=== PATIENT | male | born 1955 | race Caucasian/White ===

== ENCOUNTER 2017-10-10 15:20 | Inpatient (IN) | payer BC ==
[2017-10-10] MEDS ORDERED: Norepinephrine 8 MG/0.9% NS 250 ML ONE (15:35)
[2017-10-10 15:55] LABS: Bilirubin Negative (Negative); Blood, Urine Large (Negative); Clarity CLOUDY (Clear); Glucose, Urine (Dipstick) Negative (Negative); Leukocyte Negative (Negative); Nitrite Negative (Negative); Protein, Urine (Dipstick) Trace mg/dL (Neg-Trace); Specific Gravity, Urine 1.019 (1.002-1.036)
[2017-10-10 15:57] LABS: Bacteria/HPF None Seen HPF (None Seen); RBC/HPF GREATER THAN 50-TNTC HPF (0-3); Squamous Epithelial 0-3 HPF (0-3); Yeast-AUWi Flag 24.8 (0-25.0)
[2017-10-10 15:58] LABS: Pathc Cast-AUWi Flag 10.03 (0-2.49)
[2017-10-10] MEDS ORDERED: Magnesium 2 GM/NS 0.9% 100 ML 2 GM in Premix Bag 1 BAG IVPB SCH (16:00)
[2017-10-10 16:14] LABS: Crystals/HPF 1+ AMORPH URATES HPF (Negative); Other Casts/LPF 0-3 COARSE GRAN LPF (0-3 Hyaline); Transitional Epithelial 0-3 HPF (0-3)
[2017-10-10 16:14] LABS: Actual Bicarbonate (HCO3a) 18.1 mEq/L (22-28); Base Excess (BEa) -4.3 mEq/L (-2.0 to +3.0); CO2 Tension 26.2 mmHg (35.0-45.0); Carboxyhemoglobin (COHb) 0.9 gm% (0.0-3.0); Hemoglobin (Hb) 12.1 g/dL (14.0-18.0); O2 Tension (PaO2) 125.4 mmHg (> 80.0); pH, Arterial 7.46 (7.35-7.45)
[2017-10-10 16:15] LABS: Potassium - ABG Lab 4.9 mmol/L (3.70-5.30); Puncture Site LRA
[2017-10-10] MEDS ORDERED: Dextrose 50% Abboject 50 ML SYRINGE SLOW IVP PRN (16:19)
[2017-10-10] MEDS ORDERED: Dextrose 5% in Water 1,000 ML IV PRN (16:19)
[2017-10-10 16:29] LABS: Magnesium 2.6 mg/dL (1.6-2.6); Phosphorus 5.3 mg/dL (2.3-4.7)
[2017-10-10] MEDS: Sodium Chloride 0.9% 1,000 ML IV SCH (16:50)
[2017-10-10] MEDS: Insulin Regular 300 UNITS/3 ML VIAL SC PRN ×2 (17:12→21:44)
[2017-10-10] MEDS: Cefepime 2 GM in Sodium Chloride 0.9% 100 ML IVPB SCH (17:21)
[2017-10-10] MEDS: Linezolid 600 MG in Premix Bag 1 BAG IVPB SCH (17:21)
--- NOTE | 2017-10-10 17:49 | RAD ---
PORTABLE CHEST: History: Pneumonia. Comparison: None. FINDINGS: Heart size is enlarged. There are post op sternotomy changes. Subcutaneous emphysema is seen over the left chest, right subclavian line is present. Parenchymal changes are present in the left base. Perh aps there is some associated effusion. IMPRESSION: 1. Cardiomegaly. 2. Parenchymal changes in the left lower lobe consistent with atelectasis or infiltrate with some eff usion. Subcutaneous emphysema is seen over the left chest. Evidence of sternal dehiscense with lower most sternal wires displaced in relation to the more proximal sternal wires. POS: [facility]
[2017-10-10] MEDS: Ondansetron PF 4 MG/2 ML Vial SLOW IVP PRN (18:01)
[2017-10-10] MEDS: Acetaminophen 1,000 MG in Premix Bag 1 BAG IVPB PRN (18:01)
[2017-10-10] MEDS: Budesonide 0.5 MG/2 ML NEB INH SCH (18:33)
[2017-10-10] MEDS: Famotidine/PF 20 mg/2ml Vial SLOW IVP SCH (21:31)
[2017-10-10] MEDS: Enoxaparin Sodium 40 MG/0.4 ML SYRINGE SC SCH (21:31)
[2017-10-11] MEDS: Acetaminophen 1,000 MG in Premix Bag 1 BAG IVPB PRN ×3 (00:17→11:16)
--- NOTE | 2017-10-11 01:14 | HP ---
HISTORY OF PRESENT ILLNESS: This is a 61-year-old gentleman who underwent coronary bypass graft x4, 9 days ago at [facility]. He had a history of chest pain, dyspnea neck pain, sweating jaw pain, and arm pain for several days prior to presenting to the emergency room where his troponin was 4. Cardiac c atheterization showed severe 3-vessel disease with an ejection fraction of 40% to 45%. He underwent bypass grafting to the LAD, diagonal, OM, and PDA using saphenous vein. At the time of surgery, the patient rather suddenly desaturated and despite multiple maneuvers unable to improve his oxygen satur ation in the intraoperative period. He remained intubated for 3-4 days postoperatively. Ultimately being extubated, although he did utilize CPAP. He was noted 2 days ago to have unstable sternum to p alpation related to his marked respiratory efforts in the perioperative period. The patient was then noted to develop some subcutaneous air and thought to have some mild left-sided weakness and was juanita en for a CAT scan of his chest which revealed subcutaneous air and the previously noted sternal bone dehiscence. He had no pneumothorax, but did have subcutaneous emphysema on the left. His MRI showed multiple small bilateral infarcts primarily centered in the frontal lobes, but not exclusively. The patient's hospital course resulted in a request for transfer to [facility] which was undert aken today. HOME MEDICATIONS: Vascepa 1 g q.12 hours b.i.d., aspirin 1 a day, Norvasc 2.5 a day, valsartan 320 a day, Jardiance 25 mg a day, Synthroid 175 mcg per day, gabapentin 300 t.i.d., Crestor 5 at bedtime, Tresiba 92 units a day, Victoza daily. In the hospital, his diabetes has been managed with insulin s liding scale and 20 units nightly. He was started on antibiotics yesterday p.m. again. SOCIAL HISTORY: Works as a , nonsmoker. PHYSICAL EXAMINATION: GENERAL: He is an overweight gentleman in some respiratory discomfort. EXTREMITIES: He has palpable subcutaneous emphysema, primarily over the left pectoralis region exten ding into the shoulder and arm at least to the elbow. He has breath sounds bilaterally and I did not appreciate any wheezing. He has palpably unstable sternum and his incision has a dressing in place that is dry. ABDOMEN: Obese, nontender. EXTREMITIES: He has no edema of the lower legs. He does have a red rash over his torso and most not ably intertriginous regions. The patient with postoperative pulmonary problems as well as elevated white count of 23,000 and unsta ble sternum. I have discussed the situation in detail with the family and at this time we will treat with antibiotics and if needed considers opening a sternal wound, but this would probably require a prolonged period of intubation.
[2017-10-11] MEDS ORDERED: Norepinephrine 8 MG/250 ML BAG IVPB PRN (01:59)
[2017-10-11] MEDS: Insulin Regular 300 UNITS/3 ML VIAL SC PRN ×3 (04:14→17:02)
[2017-10-11 04:40] LABS: Anion Gap 17 mmol/L (10-20); BUN (Urea Nitrogen) 105 mg/dL (8.4-25.7); Calc. Creatinine Clearance 62 mL/min (70-130); Carbon Dioxide 20 mmol/L (23-31); Chloride 97 mmol/L (98-107); Estimated GFR-MDRD 37; Glucose 338 mg/dL (80-115); Potassium 4.7 mmol/L (3.5-5.1); Sodium 129 mmol/L (136-145)
--- NOTE | 2017-10-11 04:42 | CON ---
DATE OF CONSULTATION: 10/10/2017 HISTORY OF PRESENT ILLNESS: Nithin Jo is a 61-year-old obese gentleman who was transferred from [facility] to [facility]. His is at the bedside. He underwent coronary bypass graft surgery and apparently, his immediate postop course was complicated by severe hypoxemia, sats in the 70s. According to Dr. Resendiz, was left intubated for 5 days. He is off the vent for 2 days, having marked respiratory distress, requiring noninvasive ventilation. He takes valsartan, levothyroxine, Jardiance, Norvasc, dose was apparently had been changed and the is going to bring the actual list of medicine. The patient is a nonsmoker, nondrinker. He is a fast food server. PAST MEDICAL HISTORY: Diabetes, hypertension, coronary artery disease, hypothyroidism. PREVIOUS SURGERIES: Surgery on his right hand and the recent bypass x4. This has been complicated b y severe respiratory failure as well as sternal wound dehiscence. Additionally, he was found to have elevated white count. ALLERGIES: None, but apparently developed a rash from VANCOMYCIN. REVIEW OF SYSTEMS: Unobtainable. PHYSICAL EXAMINATION: GENERAL: The patient is in moderate distress. VITAL SIGNS: Respiratory rate is 27, sats 100% on BiPAP, blood pressure 140/70, and pulse 105. CHEST: Diffuse wheezing. CARDIAC: Sinus tachycardia. ABDOMEN: Distended and soft. EXTREMITIES: No edema. LABORATORY DATA: His chest x-ray shows left-sided infiltrate. Some of this may be pleural effusion. Lab is pending, but reviewing his lab from [facility] showed his creatinine is elevated from 1 to 1.3. Basically normal GFR. His white count is apparently remain elevated, was trying to figure out the most recent white count. But his H&H is stable. IMPRESSION: 1. Marked respiratory distress with extensive subcutaneous emphysema, but no evidence of pneumothora x seen on the x-ray. 2. Abdominal x-ray, left-sided pulmonary infiltrate may be of pleural effusion. 3. Nonsmoker. 4. Diabetes. 5. Hypertension. 6. Obesity, probably of sleep apnea. PLAN: I have started him on broad-spectrum antibiotics, neb treatments, and steroids. His condition not improved. He will be intubated. Consider a CT of his chest once a little bit more stable. This is forty-five minutes of critical care time.
[2017-10-11 04:55] LABS: Hemoglobin 10.4 g/dL (14.0-18.0); Mean Corpuscular HGB CONC 32.9 g/dL (32.0-36.0); Mean Corpuscular Hemoglobin 29.1 pg (27.0-31.0); Mean Corpuscular Volume 88.5 fL (78.0-98.0); Mean Platelet Volume 8.2 fL (7.4-10.4); Platelet Count 405 thou/uL (130-400); RBC Distribution Width 12.8 % (11.5-14.5); Red Blood Cell (RBC) Count 3.59 mill/uL (4.70-6.10); White Blood Cell (WBC) Count 25.2 thou/uL (4.8-10.8)
[2017-10-11 04:56] LABS: Band 5 % (5-11); Hypochromia SLIGHT = 6-15 cells (100X) (0-5/hpf); Lymphocytes 4 % (21-51); MDiff Complete? YES; Monocytes 1 % (0-10); Neutrophil 90 % (42-75); PLT Morphology Comment Appears Increased
[2017-10-11] MEDS ORDERED: Budesonide 0.5 MG/2 ML NEB ONE (05:09)
[2017-10-11] MEDS: Cefepime 2 GM in Sodium Chloride 0.9% 100 ML IVPB SCH (05:54)
[2017-10-11] MEDS: Sodium Chloride 0.9% 1,000 ML IV SCH (05:54)
[2017-10-11] MEDS: Linezolid 600 MG in Premix Bag 1 BAG IVPB SCH ×2 (05:54→18:00)
[2017-10-11] MEDS: Budesonide 0.5 MG/2 ML NEB INH SCH ×2 (06:44→18:29)
--- NOTE | 2017-10-11 08:13 | PRG ---
DATE OF SERVICE: 10/11/2017 Nithin Jo this morning is awake, alert, responsive. He was hypotensive. He received Levophed last night. PHYSICAL EXAMINATION: VITAL SIGNS: Pulse 97, blood pressure is 98/61, sats are 90%, respirations 29. His I's and O's have been 1980 in, 117 out. GENERAL: He is awake, alert, responsive. He is off his BiPAP. CHEST: Chest revealed decreased breath sounds, no wheezing. CARDIAC: Normal S1, S2, no gallops. ABDOMEN: Soft, no masses. White count 25,000, H&H 10 and 30, BUN and creatinine are elevated at 1.87. Appears to be prerenal. His x-ray shows left-sided pleural effusion. ASSESSMENT: 1. Status post coronary artery bypass graft. 2. STERNAL WOUND DEHESIS 3. Respiratory failure. 4. Hypothyroidism. 5. Left-sided pleural effusion. 6. Extensive mediastinal air. PLAN: Continue hydration and supportive care. PT, nutrition, antibiotics. PT, discuss with CV Surgery. He may very well need a small bore chest tube on the left side. One-half hour critical care time. [facility]
[2017-10-11] MEDS ORDERED: Levothyroxine Sodium 125 MCG TAB PO SCH (08:30)
[2017-10-11] MEDS ORDERED: Lidocaine 1% w/Epinephrine 1:100K 20 ML VIAL ONE (08:53)
[2017-10-11] MEDS ORDERED: Albumin 25% 25 GM/100 ML BOT IVPB SCH (09:30)
--- NOTE | 2017-10-11 10:37 | RAD ---
SEMIUPRIGHT PORTABLE CHEST 1 VIEW: Date: 10/11/17 HISTORY: 61-year-old male with history of respiratory insufficiency. COMPARISON: 10/10/17. FINDINGS: Left-sided subcutaneous emphysema. Fairly diffuse abnormal pleural and parenchymal opacity changes ov er the left chest, probably somewhat worse when compared to the prior study. Right subclavian cathete r. Postop midline sternotomy. Rotation to the right. Unremarkable right chest. IMPRESSION: Somewhat worsening appearance of the diffuse alveolar and interstitial parenchymal and pleural opacit y changes of the left chest. Depending on concern, a follow-up CT scan might further characterize thi s. POS: [facility]
[2017-10-11] MEDS: Famotidine/PF 20 mg/2ml Vial SLOW IVP SCH ×2 (10:53→22:00)
--- NOTE | 2017-10-11 11:39 | CON ---
DATE OF CONSULTATION: 10/11/2017 SERVICE: Renal Medicine. HISTORY OF PRESENT ILLNESS: Mr. Jo is a 61-year-old white male who is status post CABG and was adm itted for chest pain and worsening shortness of breath. He was evaluated by Cardiothoracic Surgery a nd was found to have significant fluid in his lungs -- chest tube has been inserted. We are now sherlyn brooks consulted for his acute kidney injury. I looked at the records 2 years ago and the renal function was normal. REVIEW OF SYSTEMS: Positive for chest pain. Positive for shortness of breath. No nausea, no vomiti ng. Decreased appetite. Decreased energy level. No headache, no diplopia. No syncopal episode, no productive cough, no fever or chills, no dysuria, no urinary frequency, no hematochezia, no melena o r hematemesis. Appetite and energy level is decreased. HOME MEDICATIONS: Included Vascepa 1 g q.12, aspirin 81 mg once a day, Norvasc 2.5 mg once a day, va lsartan 320 mg once a day, Jardiance 25 mg once a day, Synthroid 125 mcg daily, gabapentin 300 mg t.i .d., Crestor 5 mg at bedtime, Tresiba 92 units daily, Victoza daily. HOSPITAL MEDICATIONS: Includes DuoNeb q.4. p.r.n., cefepime 1 g IV q.12 hours, Lovenox 40 mg subcu d aily, Pepcid 20 mg IV daily, levothyroxine 125 mcg daily, Humulin R sliding scale, Synthroid 125 mcg daily, linezolid 600 mg b.i.d., morphine sulfate p.r.n., Levophed drip, Zofran p.r.n., normal saline at 70 mL an hour. PAST MEDICAL HISTORY: 1. Hyperlipidemia. 2. Hypothyroidism. 3. Type 2 diabetes mellitus. 4. Coronary artery disease. PAST SURGICAL HISTORY: Status post cardiac catheterization, status post CABG, status post left chest tube placement, status post right hand surgery. SOCIAL HISTORY: The patient lives in [place], , 2 children, works as a maintenance plumber. No smoking. A lcohol rarely. No drug abuse. No blood transfusion. Education, 10th grade. ALLERGIES: Unknown. TRAUMA: None. IMMUNIZATIONS: Up to date. HOSPITALIZATIONS: Please see past medical history. FAMILY HISTORY: No family history of ESRD. PHYSICAL EXAMINATION: VITAL SIGNS: Blood pressure is 114/77, heart rate 96, respiratory rate 22, pulse ox 100%. GENERAL: The patient is awake, mild respiratory distress, obese. SKIN: Adequate turgor. HEENT: He has pinkish conjunctivae, anicteric sclerae. NECK: No neck mass, no carotid bruits, no JVD. CHEST: No deformities. He has a left-sided chest tube. LUNGS: Clear breath sounds. HEART: Normal sinus rhythm. No murmur, no gallops, no rubs. ABDOMEN: Globular, soft, nontender, no masses. EXTREMITIES: Trace edema. LABORATORY DATA: Laboratories of 10/10/2017, urinalysis shows specific gravity of 1.019, RBC greater than 50, WBC 4-6. There is a finding of 0-3 coarse granular cast. Sodium 129, potassium 4.7, chloride 97, carbon dioxide 20, BUN 105, creatinine 1.87, glucose 338, beverly cium 8.0. TSH 8.1. IMAGING: Chest x-ray of 10/10/2017 showed parenchymal changes in the left lower lobe with effusion, subcutaneous emphysema over the left chest. ASSESSMENT AND PLAN: 1. Acute kidney injury -- initially, we felt that this may be a hemodynamically mediated renal dysfu nction. He has received salt poor albumin as one-time dose and currently on maintenance normal salin e. I did look at the urine sediment. There are findings of granular casts suggesting the possibilit y of a superimposed acute tubular necrosis. At one time he was noted to be on valsartan, which has b een discontinued. My plan is simply to observe him. He has superimposed acute tubular necrosis. Nickolas wakefield is supportive. I would at least add salt poor albumin 25 g IV q.6 with this patient for the next 2-3 days. There is no indication for any dialytic intervention at the present time. 2. Shortness of breath/pleural effusion -- status post left chest tube placement as well as empiric IV antibiotics. Overall, prognosis remains guarded.
--- NOTE | 2017-10-11 11:46 | RAD ---
CHEST ONE VIEW: History: Chest tube placement. Comparison: Same day. FINDINGS: Left basilar thoracostomy tube is in place. There is subcutaneous emphysema along the left chest wall , similar. There are opacities throughout the left lung. The lower most sternal wire is leftward to the remainder of the wires. Right lung is relatively clear. IMPRESSION: Interval placement of the left thoracostomy tube which is basilar. Two views are recommended to evalu ate the location of the tube and make sure it is not intraperitoneal. POS: [facility]
[2017-10-11 14:20] LABS: Creatinine, Urine 71.41 mg/dL (63-166)
--- NOTE | 2017-10-11 15:24 | ULT ---
RENAL ULTRASOUND: 10/11/2017 HISTORY: Renal failure. COMPARISON: None. TECHNIQUE: Multiplanar michelle-scale sonographic imaging of the kidneys and the urinary bladder are obtained. FINDINGS: The right kidney measures 11.4 x 5.8 x 5.9 cm and demonstrates no evidence for stone, hydronephrosis, or mass. The urinary bladder is decompressed and contains a Perry catheter. The left kidney measures 10.8 x 6 x 5.8 cm and demonstrates no evidence for hydronephrosis, stone, or mass lesion. IMPRESSION: Grossly unremarkable renal ultrasound. POS: [facility]
[2017-10-11] MEDS: Cefepime 1 GM in Sodium Chloride 0.9% 100 ML IVPB SCH (17:59)
[2017-10-11] MEDS: Ondansetron PF 4 MG/2 ML Vial SLOW IVP PRN (21:51)
[2017-10-11] MEDS: Enoxaparin Sodium 40 MG/0.4 ML SYRINGE SC SCH (21:52)
[2017-10-12] MEDS: Sodium Chloride 0.9% 1,000 ML IV SCH ×3 (01:17→16:00)
[2017-10-12] MEDS: Insulin Regular 300 UNITS/3 ML VIAL SC PRN ×5 (01:18→20:38)
[2017-10-12 05:53] LABS: Anion Gap 13 mmol/L (10-20); BUN (Urea Nitrogen) 83 mg/dL (8.4-25.7); Calc. Creatinine Clearance 115 mL/min (70-130); Calcium 8.1 mg/dL (7.8-10.44); Carbon Dioxide 22 mmol/L (23-31); Chloride 102 mmol/L (98-107); Estimated GFR-MDRD 76; Glucose 335 mg/dL (80-115); Potassium 4.5 mmol/L (3.5-5.1); Sodium 132 mmol/L (136-145)
[2017-10-12 06:01] LABS: Band 8 % (5-11); Hemoglobin 10.3 g/dL (14.0-18.0); Lymphocytes 12 % (21-51); MDiff Complete? YES; Mean Corpuscular HGB CONC 33.5 g/dL (32.0-36.0); Mean Corpuscular Hemoglobin 29.7 pg (27.0-31.0); Mean Corpuscular Volume 88.7 fL (78.0-98.0); Mean Platelet Volume 8.1 fL (7.4-10.4); Monocytes 2 % (0-10); Neutrophil 78 % (42-75); Nucleated RBC 1 % (0); PLT Morphology Comment Appears Increased; Platelet Count 505 thou/uL (130-400); RBC Distribution Width 12.9 % (11.5-14.5); Red Blood Cell (RBC) Count 3.48 mill/uL (4.70-6.10); White Blood Cell (WBC) Count 27.2 thou/uL (4.8-10.8)
[2017-10-12] MEDS: Levothyroxine Sodium 125 MCG TAB PO SCH (06:13)
[2017-10-12] MEDS: Cefepime 1 GM in Sodium Chloride 0.9% 100 ML IVPB SCH ×2 (06:13→17:46)
[2017-10-12] MEDS: Linezolid 600 MG in Premix Bag 1 BAG IVPB SCH ×2 (06:14→17:46)
[2017-10-12] MEDS: Budesonide 0.5 MG/2 ML NEB INH SCH ×2 (07:01→19:00)
--- NOTE | 2017-10-12 08:18 | PRG ---
DATE OF SERVICE: 10/12/2017 This morning he is better. He says he is less short of breath. Apparently, he is hoarse. PHYSICAL EXAMINATION: VITAL SIGNS: His sats are 92-94 on 2 liters, pulse 89, blood pressure is 110/80. His I's and O's mullins ve been excellent, 3851 in, 4645 out. CHEST: Chest revealed decreased breath sounds, some crackles in the left lung. CARDIAC: Normal S1-S2. No gallops. ABDOMEN: Soft. No masses. LABORATORY: BUN and creatinine are much improved. White count 27,000, platelet count 76, blood suga r 358. X-ray shows slight cephalization. IMPRESSION: 1. Renal failure, prerenal, improving. 2. Status post coronary artery bypass graft. 3. Status post sternal wound dehiscence. 4. Respiratory failure. 5. Hypothyroidism. PLAN: The patient has improved significantly. All his cultures so far are negative, will probably d eescalate antibiotics in the next 24-48 hours. One-half hour critical care time.
--- NOTE | 2017-10-12 09:43 | RAD ---
CHEST ONE VIEW: Comparison: 10-11-17 History: Chest tube placement. FINDINGS: Re-demonstration of sternotomy wires and right sided central venous catheter. There appears to be a l eft sided chest tube, along the left lung base, unchanged. There is associated subcutaneous emphysema , left hemithorax. On the current exam, pneumothorax is not appreciated. Stable aeration of the lung parenchyma. IMPRESSION: No significant change. POS: [facility]
--- NOTE | 2017-10-12 10:13 | PRG ---
DATE OF SERVICE: 10/12/2017 SERVICE: Renal Medicine. SUBJECTIVE: Mr. Jo is a 61-year-old white male who was initially admitted to worsening shortness o f breath. He had a chest tube placed yesterday. We were consulted because of his acute kidney injur y. Review of the urine sediment suggested acute tubular necrosis at that time. He was found also to be volume depleted and for that empiric volume repletion was done. In addition, he received 2 doses of albumin infusion. Cardiac echo showed a normal EF. This morning, he is feeling a little better. OBJECTIVE: VITAL SIGNS: Blood pressure is 99/63, ____ 115/87, heart rate 89, respiratory rate 19, pulse ox 92%. GENERAL: Noted to be awake, sitting comfortable, obese. SKIN: Adequate turgor. HEENT: Pinkish conjunctiva, anicteric sclerae. NECK: No neck mass, no carotid bruits, no JVD. CHEST: No deformities. Positive for chest tube. LUNGS: Decreased breath sounds. HEART: Normal sinus rhythm. No murmur, no gallops, no rubs. ABDOMEN: Globular, soft, nontender. EXTREMITIES: Trace edema. MEDICATIONS: Of 10/12/2017 was reviewed. LABORATORY DATA: Of 10/12/2017, white count 27.2, hemoglobin 10.3. Sodium 132, potassium 4.5, chlor opal 102, carbon dioxide 22, BUN 83, creatinine 1.0, calcium 8.1. ASSESSMENT AND PLAN: 1. Acute kidney injury - with improving renal function with IV infusion and IV fluid - suggestive of superimposed prerenal azotemia. He does have some degree of tubular necrosis as suggested by the gr anular casts. For the moment, agree with current management. Continue volume repletion and optimize hemodynamics. 2. Elevated white count - The patient currently on empiric IV antibiotics - with cefepime. The margoth ent is currently on cefepime and Linezolid. Agree with current management. Continue supportive care.
[2017-10-12] MEDS: Famotidine 20 MG TAB PO SCH ×2 (10:15→20:36)
[2017-10-12] MEDS: Acetaminophen 650 MG/20.3 ML UDCUP PO PRN (10:15)
[2017-10-12] MEDS: Famotidine/PF 20 mg/2ml Vial SLOW IVP SCH (12:33)
[2017-10-12] MEDS: Enoxaparin Sodium 40 MG/0.4 ML SYRINGE SC SCH (20:35)
[2017-10-12] MEDS: Insulin Glargine 10 UNITS in Pre-Filled Syringe 1 EACH SC SCH (20:36)
[2017-10-13] MEDS: Sodium Chloride 0.9% 1,000 ML IV SCH ×3 (03:35→11:46)
[2017-10-13 05:57] LABS: Anion Gap 13 mmol/L (10-20); BUN (Urea Nitrogen) 65 mg/dL (8.4-25.7); Calc. Creatinine Clearance 145 mL/min (70-130); Calcium 8.2 mg/dL (7.8-10.44); Carbon Dioxide 23 mmol/L (23-31); Chloride 105 mmol/L (98-107); Estimated GFR-MDRD Greater than 90; Glucose 171 mg/dL (80-115); Potassium 4.6 mmol/L (3.5-5.1); Sodium 136 mmol/L (136-145)
[2017-10-13] MEDS: Levothyroxine Sodium 125 MCG TAB PO SCH (05:59)
[2017-10-13] MEDS: Cefepime 1 GM in Sodium Chloride 0.9% 100 ML IVPB SCH ×2 (05:59→18:16)
[2017-10-13] MEDS: Linezolid 600 MG in Premix Bag 1 BAG IVPB SCH ×2 (06:01→18:15)
[2017-10-13 06:05] LABS: Band 1 % (5-11); Hemoglobin 10.2 g/dL (14.0-18.0); Hypochromia SLIGHT = 6-15 cells (100X) (0-5/hpf); Lymphocytes 7 % (21-51); MDiff Complete? YES; Mean Corpuscular HGB CONC 33.3 g/dL (32.0-36.0); Mean Corpuscular Hemoglobin 29.7 pg (27.0-31.0); Mean Corpuscular Volume 89.1 fL (78.0-98.0); Mean Platelet Volume 7.9 fL (7.4-10.4); Monocytes 4 % (0-10); Neutrophil 88 % (42-75); PLT Morphology Comment Appears Increased; Platelet Count 518 thou/uL (130-400); Red Blood Cell (RBC) Count 3.45 mill/uL (4.70-6.10); White Blood Cell (WBC) Count 21.5 thou/uL (4.8-10.8)
[2017-10-13] MEDS: Insulin Regular 300 UNITS/3 ML VIAL SC PRN ×4 (06:15→20:34)
[2017-10-13] MEDS ORDERED: traMADol HCl 50 MG TAB PO PRN (06:59)
[2017-10-13] MEDS: Budesonide 0.5 MG/2 ML NEB INH SCH (07:06)
[2017-10-13] MEDS ORDERED: predniSONE 20 MG TAB PO SCH (08:00)
[2017-10-13] MEDS: Famotidine 20 MG TAB PO SCH ×2 (08:33→20:31)
[2017-10-13] MEDS: Polyethylene Glycol 3350 17 GM Packet PO SCH (08:34)
[2017-10-13] MEDS: Insulin Glargine 10 UNITS in Pre-Filled Syringe 1 EACH SC SCH ×2 (08:36→20:32)
--- NOTE | 2017-10-13 08:45 | RAD ---
CHEST 1 VIEW: Date: 10/13/17 HISTORY: Dyspnea. Follow-up. COMPARISON: 10/12/17. FINDINGS: Cardiac silhouette is magnified and upper limits of normal in size. Pulmonary vasculature remains eng orged. Patchy areas of parenchymal infiltrate and reticulonodular interstitial prominence are similar in appearance to the previous exam. Mediastinum is midline with postoperative changes. Right subclav oni central venous catheter remains in place. Left thoracostomy tube is unchanged in position. No niya dence of pneumothorax. Left chest wall gas has decreased slightly. IMPRESSION: Slight interval decrease in left chest wall gas. Other findings are stable. POS: [facility]
--- NOTE | 2017-10-13 11:57 | PRG ---
DATE OF SERVICE: 10/13/2017 This is a 61-year-old old gentleman status post CABG with sternal dehiscence complaining of chest gila n. PHYSICAL EXAMINATION: VITAL SIGNS: Sats are 96% on 2 liters, temperature is 98, pulse 90, respiration 16, blood pressure is 93/64. He is better, less short of breath. CHEST: Chest revealed decreased breath sounds, no wheezing. CARDIAC: Normal S1, S2. ABDOMEN: Soft, no masses. LABORATORY: Blood sugar 169, calcium 8.2. White count 10,000. Renal functions are back to normal. IMPRESSION: 1. Status post coronary artery bypass graft wound dehiscence. 2. Respiratory failure. 3. Severe deconditioning. 4. Pleural effusion. PLAN: Continue slow hydration, PT and supportive care. Diabetic control. Eventually we will transfer out of the ICU to telemetry. Continue PT. Probably the chest tube can be removed in the next day or two. One-half hour critical care time.
[2017-10-13] MEDS: HYDROcodone/Acetaminophen 5/325 mg Tablet PO PRN ×2 (18:17→21:53)
[2017-10-13] MEDS: Enoxaparin Sodium 40 MG/0.4 ML SYRINGE SC SCH (20:31)
[2017-10-14 05:12] LABS: Anion Gap 13 mmol/L (10-20); BUN (Urea Nitrogen) 41 mg/dL (8.4-25.7); Calc. Creatinine Clearance 162 mL/min (70-130); Calcium 8.3 mg/dL (7.8-10.44); Carbon Dioxide 23 mmol/L (23-31); Chloride 105 mmol/L (98-107); Estimated GFR-MDRD Greater than 90; Glucose 139 mg/dL (80-115); Potassium 4.6 mmol/L (3.5-5.1); Sodium 136 mmol/L (136-145)
[2017-10-14] MEDS: Cefepime 1 GM in Sodium Chloride 0.9% 100 ML IVPB SCH ×2 (05:37→18:01)
[2017-10-14] MEDS: Linezolid 600 MG in Premix Bag 1 BAG IVPB SCH ×2 (05:37→17:59)
[2017-10-14 05:38] LABS: Band 2 % (5-11); Hemoglobin 11.2 g/dL (14.0-18.0); Lymphocytes 25 % (21-51); MDiff Complete? YES; Mean Corpuscular HGB CONC 33.5 g/dL (32.0-36.0); Mean Corpuscular Volume 89.6 fL (78.0-98.0); Monocytes 8 % (0-10); Neutrophil 65 % (42-75); Nucleated RBC 1 % (0); Platelet Count 544 thou/uL (130-400); RBC Distribution Width 13.3 % (11.5-14.5); Red Blood Cell (RBC) Count 3.74 mill/uL (4.70-6.10); White Blood Cell (WBC) Count 18.5 thou/uL (4.8-10.8)
[2017-10-14] MEDS: Levothyroxine 175 MCG TAB PO SCH (05:38)
[2017-10-14] MEDS: Insulin Regular 300 UNITS/3 ML VIAL SC PRN ×3 (05:52→17:58)
--- NOTE | 2017-10-14 07:55 | PRG ---
DATE OF SERVICE: 10/14/2017 This morning he is having a cough, some chest pain. PHYSICAL EXAMINATION: VITAL SIGNS: Sats are 90% on room air, pulse 102, blood pressure 127/99, temperature 97. Afebrile. Sputum is clear. CHEST: Chest reveals decreased breath sounds, no wheezing. CARDIAC: Normal S1, S2, regular. No gallops. ABDOMEN: Soft, no masses. His x-ray still shows a left-sided infiltrate. Chest tube in place. White count is decreased to 18,000. BUN and creatinine are 41 and 0.7. IMPRESSION: 1. Respiratory failure. 2. Status post coronary artery bypass graft. 3. Diabetes. PLAN: Continue aggressive PT. Will probably switch over to oral antibiotics once the chest tube is removed. Comfort care. Probably can be transferred out of the [facility] today if it is okay with Dr. Resendiz. One-half hour critical care time.
[2017-10-14] MEDS: Sodium Chloride 0.9% 1,000 ML IV SCH (08:54)
[2017-10-14] MEDS ORDERED: Levothyroxine 175 MCG TAB PO SCH (09:00)
[2017-10-14] MEDS: predniSONE 5 MG TAB PO SCH (09:03)
[2017-10-14] MEDS: Insulin Glargine 15 UNITS in Pre-Filled Syringe 1 EACH SC SCH ×2 (09:04→22:45)
[2017-10-14] MEDS: Famotidine 20 MG TAB PO SCH ×2 (09:04→21:31)
[2017-10-14] MEDS: Polyethylene Glycol 3350 17 GM Packet PO SCH (09:05)
[2017-10-14] MEDS: HYDROcodone/Acetaminophen 5/325 mg Tablet PO PRN (09:54)
[2017-10-14] MEDS: ALPRAZolam 0.25 MG TAB PO PRN (12:50)
[2017-10-14] MEDS ORDERED: Mag-Al 1200 mg/1200 mg/30 ML UDCUP PO PRN (14:00)
[2017-10-14] MEDS ORDERED: Nitroglycerin 0.4 MG TAB (25 Tab Bottle) SL PRN (14:00)
[2017-10-14] MEDS ORDERED: Bisacodyl 10 MG SUPP PR PRN (14:00)
[2017-10-14] MEDS ORDERED: Mineral Oil ENEMA PR PRN (14:00)
[2017-10-14] MEDS ORDERED: Gabapentin 300 MG CAP PO SCH (14:30)
[2017-10-14] MEDS ORDERED: Aspirin 325 mg Enteric Coated Tablet PO SCH (14:30)
[2017-10-14] MEDS: Enoxaparin Sodium 40 MG/0.4 ML SYRINGE SC SCH (21:29)
[2017-10-14] MEDS: Guaifenesin DM 100-10/5 ML UDCUP PO PRN (21:30)
[2017-10-14] MEDS: Gabapentin 300 MG CAP PO SCH (21:32)
[2017-10-14] MEDS: Bisacodyl 5 MG TAB PO PRN (21:36)
[2017-10-15] MEDS: HYDROcodone/Acetaminophen 5/325 mg Tablet PO PRN ×2 (00:02→21:04)
[2017-10-15] MEDS: Levothyroxine 175 MCG TAB PO SCH (05:38)
[2017-10-15] MEDS: Linezolid 600 MG in Premix Bag 1 BAG IVPB SCH (05:38)
[2017-10-15] MEDS: Cefepime 1 GM in Sodium Chloride 0.9% 100 ML IVPB SCH (05:38)
[2017-10-15 06:14] LABS: Anion Gap 15 mmol/L (10-20); BUN (Urea Nitrogen) 33 mg/dL (8.4-25.7); Calc. Creatinine Clearance 146 mL/min (70-130); Calcium 8.2 mg/dL (7.8-10.44); Carbon Dioxide 21 mmol/L (23-31); Chloride 102 mmol/L (98-107); Estimated GFR-MDRD Greater than 90; Glucose 261 mg/dL (80-115); Sodium 133 mmol/L (136-145)
[2017-10-15 06:28] LABS: Band 2 % (5-11); Eosinophils 5 % (0-10); Hemoglobin 11.6 g/dL (14.0-18.0); Lymphocytes 9 % (21-51); MDiff Complete? YES; Mean Corpuscular HGB CONC 33.7 g/dL (32.0-36.0); Mean Corpuscular Hemoglobin 30.1 pg (27.0-31.0); Mean Corpuscular Volume 89.5 fL (78.0-98.0); Mean Platelet Volume 7.6 fL (7.4-10.4); Monocytes 6 % (0-10); Myelocyte 3 % (0-0); Neutrophil 73 % (42-75); PLT Morphology Comment Appears Increased; Platelet Count 541 thou/uL (130-400); RBC Distribution Width 13.4 % (11.5-14.5); Reactive Lymphocytes 2 % (0-10); Red Blood Cell (RBC) Count 3.85 mill/uL (4.70-6.10); White Blood Cell (WBC) Count 18.4 thou/uL (4.8-10.8)
[2017-10-15] MEDS: Insulin Glargine 15 UNITS in Pre-Filled Syringe 1 EACH SC SCH ×2 (08:59→20:49)
[2017-10-15] MEDS: predniSONE 5 MG TAB PO SCH (09:00)
[2017-10-15] MEDS: Aspirin 325 mg Enteric Coated Tablet PO SCH (09:01)
[2017-10-15] MEDS: Polyethylene Glycol 3350 17 GM Packet PO SCH (09:01)
[2017-10-15] MEDS: Gabapentin 300 MG CAP PO SCH ×2 (09:01→20:48)
[2017-10-15] MEDS: Famotidine 20 MG TAB PO SCH ×2 (09:01→20:48)
--- NOTE | 2017-10-15 09:25 | PRG ---
DATE OF SERVICE: 10/15/2017 This morning he is still having some problems with mentation, still hoarse. PHYSICAL EXAMINATION: VITAL SIGNS: Sats are 94 on 1 liter, respiration 22, temperature 97, pulse 106, blood pressure 139/6 9. GENERAL: Still weak, still have difficulty breathing. CHEST: Chest reveals some crepitus on the left side, otherwise no wheezing or crackles. CARDIAC: Normal S1, S2. No gallops. ABDOMEN: Soft, no masses. LABORATORY: Sodium is 133, BUN and creatinine are back to normal. White count 18,000. All cultures are negative. IMPRESSION: 1. Status post coronary artery bypass graft. 2. Status post small emboli to the head, a small lacunar infarct. 3. Encephalopathy. 4. Renal failure, resolved. PLAN: I would discontinue all his antibiotics. All cultures are negative. Empiric p.o. antibiotics . PT and supportive care, eventually placement. Blood sugar appears to have improved somewhat. Increase the dose of Lantus. We will follow.
[2017-10-15] MEDS: Insulin Regular 300 UNITS/3 ML VIAL SC PRN ×2 (12:58→17:59)
[2017-10-15] MEDS: Enoxaparin Sodium 40 MG/0.4 ML SYRINGE SC SCH (20:49)
[2017-10-15] MEDS: Cefdinir 300 MG CAP PO SCH (20:49)
[2017-10-15] MEDS: Guaifenesin DM 100-10/5 ML UDCUP PO PRN (21:06)
[2017-10-16] MEDS: ALPRAZolam 0.25 MG TAB PO PRN (01:13)
[2017-10-16] MEDS: Levothyroxine 175 MCG TAB PO SCH (05:59)
[2017-10-16] MEDS: Bisacodyl 5 MG TAB PO PRN ×2 (06:07→18:00)
[2017-10-16 06:22] LABS: Anion Gap 15 mmol/L (10-20); BUN (Urea Nitrogen) 27 mg/dL (8.4-25.7); Calc. Creatinine Clearance 154 mL/min (70-130); Calcium 8.1 mg/dL (7.8-10.44); Carbon Dioxide 23 mmol/L (23-31); Chloride 100 mmol/L (98-107); Estimated GFR-MDRD Greater than 90; Glucose 230 mg/dL (80-115); Potassium 4.9 mmol/L (3.5-5.1); Sodium 133 mmol/L (136-145)
[2017-10-16 08:14] LABS: Band 2 % (5-11); Eosinophils 7 % (0-10); Hemoglobin 11.3 g/dL (14.0-18.0); Lymphocytes 19 % (21-51); MDiff Complete? YES; Mean Corpuscular HGB CONC 33.3 g/dL (32.0-36.0); Mean Corpuscular Hemoglobin 29.8 pg (27.0-31.0); Mean Corpuscular Volume 89.5 fL (78.0-98.0); Mean Platelet Volume 7.3 fL (7.4-10.4); Metamyelocyte 1 % (0-0); Monocytes 8 % (0-10); Neutrophil 63 % (42-75); Platelet Count 543 thou/uL (130-400); RBC Distribution Width 13.5 % (11.5-14.5); Red Blood Cell (RBC) Count 3.78 mill/uL (4.70-6.10); White Blood Cell (WBC) Count 17.5 thou/uL (4.8-10.8)
[2017-10-16] MEDS: Aspirin 325 mg Enteric Coated Tablet PO SCH (09:10)
[2017-10-16] MEDS: Famotidine 20 MG TAB PO SCH ×2 (09:10→20:43)
[2017-10-16] MEDS: Cefdinir 300 MG CAP PO SCH ×2 (09:10→20:42)
[2017-10-16] MEDS: Polyethylene Glycol 3350 17 GM Packet PO SCH (09:10)
[2017-10-16] MEDS: Insulin Glargine 15 UNITS in Pre-Filled Syringe 1 EACH SC SCH ×2 (09:10→20:50)
[2017-10-16] MEDS: predniSONE 5 MG TAB PO SCH (09:11)
[2017-10-16] MEDS: Gabapentin 300 MG CAP PO SCH ×2 (10:24→21:16)
[2017-10-16] MEDS: Insulin Regular 300 UNITS/3 ML VIAL SC PRN ×3 (12:17→20:51)
[2017-10-16] MEDS: HYDROcodone/Acetaminophen 5/325 mg Tablet PO PRN ×2 (15:11→20:42)
--- NOTE | 2017-10-16 15:59 | PRG ---
DATE OF SERVICE: 10/16/2017 SUBJECTIVE: He is afebrile, heart rate 76, respiratory rate 16, blood pressure 109/70. He says he sat up for 9 hours this morning. He got in the chair at 5 and just now got in bed. OBJECTIVE: LUNGS: Clear. HEART: Regular rhythm. ABDOMEN: Soft. He still has chest tube in place. LABORATORY DATA: White count 17.5, hemoglobin 11.3, platelets 543. Sodium 133, creatinine 4.9, chloride 100, bicarbonate 23, BUN 27, creatinine 0.73. IMPRESSION: 1. Status post coronary bypass grafting. 2. Status post ? plaque emboli with a small cerebrovascular accident. 3. Encephalopathy that is dramatically improved. 4. Acute renal insufficiency that is resolved. 5. Diabetes. PLAN: Continue supportive care, physical therapy, monitoring blood glucoses and empiric antibiotics.
[2017-10-16] MEDS: Enoxaparin Sodium 40 MG/0.4 ML SYRINGE SC SCH (20:43)
[2017-10-17] MEDS: Levothyroxine 175 MCG TAB PO SCH (05:53)
[2017-10-17 06:24] LABS: #Eosinphils 0.8 thou/uL (0.0-0.7); #Lymphocytes 3.3 thou/uL (1.20-3.40); #Monocytes 0.9 thou/uL (0.11-0.59); #Neutrophils 13.6 thou/uL (1.40-6.50); %Basophils 0.2 % (0.0-1.0); %Eosinophils 4.3 % (0.0-10.0); %Lymphocytes 17.7 % (21.0-51.0); %Monocytes 4.9 % (0.0-10.0); %Neutrophils 72.9 % (42.0-75.0); Mean Corpuscular HGB CONC 33.1 g/dL (32.0-36.0); Mean Corpuscular Hemoglobin 29.8 pg (27.0-31.0); Platelet Count 588 thou/uL (130-400); RBC Distribution Width 13.8 % (11.5-14.5); Red Blood Cell (RBC) Count 4.03 mill/uL (4.70-6.10); White Blood Cell (WBC) Count 18.7 thou/uL (4.8-10.8)
[2017-10-17 06:50] LABS: Anion Gap 13 mmol/L (10-20); BUN (Urea Nitrogen) 22 mg/dL (8.4-25.7); Calc. Creatinine Clearance 176 mL/min (70-130); Calcium 8.1 mg/dL (7.8-10.44); Carbon Dioxide 23 mmol/L (23-31); Chloride 99 mmol/L (98-107); Estimated GFR-MDRD Greater than 90; Glucose 159 mg/dL (80-115); Potassium 4.8 mmol/L (3.5-5.1); Sodium 130 mmol/L (136-145)
[2017-10-17] MEDS: Famotidine 20 MG TAB PO SCH ×2 (09:41→21:14)
[2017-10-17] MEDS: Gabapentin 300 MG CAP PO SCH ×2 (09:41→21:14)
[2017-10-17] MEDS: Insulin Glargine 15 UNITS in Pre-Filled Syringe 1 EACH SC SCH ×2 (09:41→21:14)
[2017-10-17] MEDS: Cefdinir 300 MG CAP PO SCH ×2 (09:41→21:14)
[2017-10-17] MEDS: Aspirin 325 mg Enteric Coated Tablet PO SCH (09:41)
[2017-10-17] MEDS: Polyethylene Glycol 3350 17 GM Packet PO SCH (09:43)
--- NOTE | 2017-10-17 10:16 | RAD ---
RADIOGRAPH CHEST 1 VIEW: Date: 10/17/17 Time: 0726 hours HISTORY: 61-year-old male with pleural effusion. COMPARISON: 10/13/17. FINDINGS: Positional differences between the current study and previous study. Dense large irregular opacities overlying left mid and lower lung zones. Sternotomy wires. Interval removal of right subclavian centr al venous catheter. The left-sided subcutaneous emphysema is no longer visualized. No other interval change. No pneumothorax. Lungs are hypoinflated. No pulmonary edema. Right lung is relatively clear. Left basilar chest tube remains. IMPRESSION: 1. Left basilar chest tube remains. 2. No pneumothorax visible. 3. Dense opacities at the left mid and lower lung [place] are unchanged. 4. Interval removal of right subclavian central venous catheter. LAURIE [] POS: [facility]
[2017-10-17] MEDS: Insulin Regular 300 UNITS/3 ML VIAL SC PRN ×2 (12:20→18:08)
--- NOTE | 2017-10-17 16:15 | PRG ---
DATE OF SERVICE: 10/17/2017 SUBJECTIVE: Nithin Jo did well overnight. He got up in a chair at 6:00 this morning. OBJECTIVE: VITAL SIGNS: His heart rate is 100, respiratory rate 20, and blood pressure 112/73. Oximetry on maximo m air is in the high 90s as high as 98. LUNGS: Clear. HEART: Regular rhythm. ABDOMEN: Soft. EXTREMITIES: Without asymmetry. LABORATORY DATA: White count 18.7, hemoglobin 12.0, platelets 588. Sodium 130, potassium 4.8, chloride 99, bicarbonate 23, BUN 22, and creatinine 0.6. IMPRESSION: 1. Status post coronary artery bypass grafting. 2. Small stroke felt to be embolic possibly plaque. 3. Encephalopathy that is improved. 4. Acute renal insufficiency, resolved. 5. Diabetes. 6. Obesity, deconditioning. PLAN: Therapy. He is working as hard as he can to cooperate with everyone. We will continue with c urrent care. Chest radiograph is ordered this morning, which showed haziness at the left base. His chest tube was in place, central line has been removed. Continue to follow.
[2017-10-17] MEDS: ALPRAZolam 0.25 MG TAB PO PRN (17:30)
[2017-10-17] MEDS: Enoxaparin Sodium 40 MG/0.4 ML SYRINGE SC SCH (21:14)
[2017-10-18] MEDS: ALPRAZolam 0.25 MG TAB PO PRN ×2 (01:14→22:17)
[2017-10-18] MEDS: Levothyroxine 175 MCG TAB PO SCH (05:01)
[2017-10-18 05:42] LABS: #Eosinphils 0.8 thou/uL (0.0-0.7); #Lymphocytes 3.3 thou/uL (1.20-3.40); #Monocytes 0.9 thou/uL (0.11-0.59); %Basophils 0.2 % (0.0-1.0); %Eosinophils 4.7 % (0.0-10.0); %Lymphocytes 20.7 % (21.0-51.0); %Monocytes 5.9 % (0.0-10.0); %Neutrophils 68.6 % (42.0-75.0); Hemoglobin 11.1 g/dL (14.0-18.0); Mean Corpuscular HGB CONC 32.7 g/dL (32.0-36.0); Mean Corpuscular Hemoglobin 29.7 pg (27.0-31.0); Mean Corpuscular Volume 90.8 fL (78.0-98.0); Mean Platelet Volume 7.3 fL (7.4-10.4); Platelet Count 508 thou/uL (130-400); Red Blood Cell (RBC) Count 3.75 mill/uL (4.70-6.10); White Blood Cell (WBC) Count 16.1 thou/uL (4.8-10.8)
[2017-10-18 06:00] LABS: Anion Gap 13 mmol/L (10-20); BUN (Urea Nitrogen) 20 mg/dL (8.4-25.7); Calc. Creatinine Clearance 150 mL/min (70-130); Calcium 7.8 mg/dL (7.8-10.44); Carbon Dioxide 23 mmol/L (23-31); Chloride 100 mmol/L (98-107); Estimated GFR-MDRD Greater than 90; Glucose 194 mg/dL (80-115); Potassium 4.2 mmol/L (3.5-5.1); Sodium 132 mmol/L (136-145)
[2017-10-18] MEDS: Insulin Glargine 15 UNITS in Pre-Filled Syringe 1 EACH SC SCH ×2 (08:50→20:17)
[2017-10-18] MEDS: Famotidine 20 MG TAB PO SCH ×2 (08:50→20:17)
[2017-10-18] MEDS: Furosemide 40 MG TAB PO SCH ×2 (08:50→15:01)
[2017-10-18] MEDS: Aspirin 325 mg Enteric Coated Tablet PO SCH (08:51)
[2017-10-18] MEDS: Polyethylene Glycol 3350 17 GM Packet PO SCH (08:51)
[2017-10-18] MEDS: Cefdinir 300 MG CAP PO SCH ×2 (08:51→20:17)
[2017-10-18] MEDS: Gabapentin 300 MG CAP PO SCH ×2 (08:51→20:17)
--- NOTE | 2017-10-18 09:12 | PRG ---
DATE OF SERVICE: 10/18/2017 This morning he is awake, alert, responsive. He is doing better, less short of breath, less encephal opathic. PHYSICAL EXAMINATION: VITAL SIGNS: Temperature 98, pulse 102, respiration 20, blood pressure 95/70. CHEST: Chest reveals decreased breath sounds, no wheezing. CARDIAC: Normal S1, S2, no gallops. ABDOMEN: Soft, no masses. LABORATORY DATA: White count is down to 16,000. Electrolytes are normal. IMPRESSION: 1. Status post coronary artery bypass graft with sternal wound dehiscence. 2. Respiratory failure. 3. Diabetes. 4. Multiple emboli cerebral, post-CABG. 5. Probably left-sided pneumonia. PLAN: Continue Omnicef. Probably his chest tube can be removed. Eventually placement. I will follow.
[2017-10-18] MEDS: Insulin Regular 300 UNITS/3 ML VIAL SC PRN ×2 (11:30→20:23)
[2017-10-18] MEDS: Enoxaparin Sodium 40 MG/0.4 ML SYRINGE SC SCH (20:17)
[2017-10-19] MEDS: HYDROcodone/Acetaminophen 5/325 mg Tablet PO PRN (03:37)
[2017-10-19 05:13] LABS: #Basophils 0.1 thou/uL (0.0-0.2); #Eosinphils 0.7 thou/uL (0.0-0.7); #Lymphocytes 2.5 thou/uL (1.20-3.40); #Monocytes 0.9 thou/uL (0.11-0.59); #Neutrophils 9.1 thou/uL (1.40-6.50); %Basophils 0.5 % (0.0-1.0); %Eosinophils 5.2 % (0.0-10.0); %Lymphocytes 18.7 % (21.0-51.0); %Monocytes 6.5 % (0.0-10.0); %Neutrophils 69.1 % (42.0-75.0); Hemoglobin 11.4 g/dL (14.0-18.0); Mean Corpuscular HGB CONC 32.9 g/dL (32.0-36.0); Mean Corpuscular Hemoglobin 29.8 pg (27.0-31.0); Mean Corpuscular Volume 90.5 fL (78.0-98.0); Mean Platelet Volume 7.1 fL (7.4-10.4); Platelet Count 511 thou/uL (130-400); RBC Distribution Width 14.2 % (11.5-14.5); Red Blood Cell (RBC) Count 3.83 mill/uL (4.70-6.10); White Blood Cell (WBC) Count 13.2 thou/uL (4.8-10.8)
[2017-10-19] MEDS: Levothyroxine 175 MCG TAB PO SCH (05:31)
[2017-10-19 05:39] LABS: Anion Gap 14 mmol/L (10-20); BUN (Urea Nitrogen) 19 mg/dL (8.4-25.7); Calc. Creatinine Clearance 153 mL/min (70-130); Calcium 8.2 mg/dL (7.8-10.44); Carbon Dioxide 24 mmol/L (23-31); Chloride 101 mmol/L (98-107); Estimated GFR-MDRD Greater than 90; Glucose 172 mg/dL (80-115); Potassium 3.9 mmol/L (3.5-5.1); Sodium 135 mmol/L (136-145)
--- NOTE | 2017-10-19 08:02 | RAD ---
PORTABLE CHEST 1 VIEW: Date: 10/19/17 Time: 0633 hours HISTORY: Chest tube removal FINDINGS/IMPRESSION: There is interval removal of the left chest tube and improvement in the aeration of the left lung si nce the last exam. POS: [facility]
[2017-10-19] MEDS: Insulin Glargine 15 UNITS in Pre-Filled Syringe 1 EACH SC SCH ×2 (09:25→20:50)
[2017-10-19] MEDS: Furosemide 40 MG TAB PO SCH ×2 (09:27→15:45)
[2017-10-19] MEDS: Gabapentin 300 MG CAP PO SCH ×2 (09:27→20:52)
[2017-10-19] MEDS: Aspirin 325 mg Enteric Coated Tablet PO SCH (09:27)
[2017-10-19] MEDS: Famotidine 20 MG TAB PO SCH ×2 (09:27→20:52)
[2017-10-19] MEDS: Polyethylene Glycol 3350 17 GM Packet PO SCH (09:29)
--- NOTE | 2017-10-19 09:30 | PRG ---
DATE OF SERVICE: 10/19/2017 This morning he is awake, alert, and responsive. His left chest tube was removed. PHYSICAL EXAMINATION: VITAL SIGNS: Pulse 105, temperature 98, sats 96%, respiration 20, blood pressure 99/62. He denied a ny difficulty breathing. CHEST: No wheezing or crackles. CARDIAC: Normal S1, S2, no gallops. ABDOMEN: Soft, no mass. IMPRESSION: 1. Coronary artery bypass graft. 2. Sternal wound dehiscence. 3. Cerebrovascular accident. 4. Left-sided pneumonia. 5. Congestive heart failure. PLAN: Continue supportive care and PT. Eventually placement.
[2017-10-19] MEDS: Insulin Regular 300 UNITS/3 ML VIAL SC PRN ×3 (13:25→20:50)
[2017-10-19] MEDS ORDERED: Zolpidem Tartrate 5 MG TAB PO PRN (16:56)
[2017-10-19] MEDS: Enoxaparin Sodium 40 MG/0.4 ML SYRINGE SC SCH (20:52)
[2017-10-20] MEDS: HYDROcodone/Acetaminophen 5/325 mg Tablet PO PRN ×2 (02:08→21:48)
[2017-10-20] MEDS: Levothyroxine 175 MCG TAB PO SCH (05:00)
[2017-10-20 05:35] LABS: #Basophils 0.1 thou/uL (0.0-0.2); #Eosinphils 0.5 thou/uL (0.0-0.7); #Lymphocytes 2.4 thou/uL (1.20-3.40); #Neutrophils 8.5 thou/uL (1.40-6.50); %Basophils 0.7 % (0.0-1.0); %Eosinophils 4.4 % (0.0-10.0); %Lymphocytes 19.1 % (21.0-51.0); %Monocytes 7.6 % (0.0-10.0); %Neutrophils 68.2 % (42.0-75.0); Hemoglobin 10.9 g/dL (14.0-18.0); Mean Corpuscular Hemoglobin 30.1 pg (27.0-31.0); Mean Corpuscular Volume 91.2 fL (78.0-98.0); Mean Platelet Volume 7.1 fL (7.4-10.4); Platelet Count 470 thou/uL (130-400); RBC Distribution Width 14.2 % (11.5-14.5); Red Blood Cell (RBC) Count 3.61 mill/uL (4.70-6.10); White Blood Cell (WBC) Count 12.4 thou/uL (4.8-10.8)
[2017-10-20 05:36] LABS: Anion Gap 12 mmol/L (10-20); BUN (Urea Nitrogen) 21 mg/dL (8.4-25.7); Calc. Creatinine Clearance 138 mL/min (70-130); Calcium 8.1 mg/dL (7.8-10.44); Carbon Dioxide 28 mmol/L (23-31); Chloride 99 mmol/L (98-107); Estimated GFR-MDRD Greater than 90; Glucose 190 mg/dL (80-115); Potassium 3.8 mmol/L (3.5-5.1); Sodium 135 mmol/L (136-145)
--- NOTE | 2017-10-20 08:22 | PRG ---
DATE OF SERVICE: 10/20/2017 SUBJECTIVE: He is doing well this morning. He is better. His mentation is better. He is less shor t of breath. OBJECTIVE: VITAL SIGNS: Sats are 95% on room air, temperature 98, pulse 101, blood pressure 122/75. CHEST: No wheezing. CARDIAC: Normal S1, S2. No gallops. ABDOMEN: Soft, no masses. LABORATORY DATA: Unremarkable. Platelet count is normal. Kidney function normal. IMPRESSION: 1. Status post coronary artery bypass graft. 2. Renal failure, improved. 3. Encephalopathy, better. PLAN: Continue PT and supportive care. Hopefully, his Perry can be removed. Eventually placement.
[2017-10-20] MEDS: Insulin Glargine 15 UNITS in Pre-Filled Syringe 1 EACH SC SCH ×2 (09:17→20:45)
[2017-10-20] MEDS: Aspirin 325 mg Enteric Coated Tablet PO SCH (09:18)
[2017-10-20] MEDS: Gabapentin 300 MG CAP PO SCH ×2 (09:18→20:44)
[2017-10-20] MEDS: Furosemide 40 MG TAB PO SCH ×2 (09:18→13:04)
[2017-10-20] MEDS: Famotidine 20 MG TAB PO SCH ×2 (09:18→20:44)
[2017-10-20] MEDS: Insulin Regular 300 UNITS/3 ML VIAL SC PRN ×3 (12:04→20:45)
[2017-10-20 12:52] VITALS: BMI 35.2
[2017-10-20] MEDS: Enoxaparin Sodium 40 MG/0.4 ML SYRINGE SC SCH (20:45)
[2017-10-21] MEDS: Levothyroxine 175 MCG TAB PO SCH (05:52)
--- NOTE | 2017-10-21 07:21 | DIS ---
10/20/2017. DISCHARGE DIAGNOSES: 1. Status post coronary bypass grafting x4 at [facility]. 2. Pulmonary dysfunction. 3. Obesity. 4. Deconditioning. 5. Hypertension. 6. Diabetes mellitus. 7. Hypothyroidism. 8. Dyslipidemia. 9. Left pleural effusion. PROCEDURES: Left chest tube placement. CONSULTATIONS: Dr. Russell in Pulmonology. Dr. Timothy Calvin is drip pumper DESCRIPTION OF HOSPITAL STAY: Mr. Jo underwent coronary bypass graft at [facility] on 10/01/2017. Postoperatively, he struggled with oxygenation. He had a full pulmonary workup with no cause for his deoxygenation noted. He eventually was able to be extubated and began the rehabilitation process. His family was unhappy with the care he received at [facility] and was transferred to [place]. Since here, he was noted to have a left pleural effusion, had a chest tube placed which has been removed. He has made significant progress in his rehab. At the time of transfer, he is ambulatory for short distances twice a day with PT. His incisions are clean and dry without evidence of infection. He has a dressing on his left chest tube site which should be changed daily if it becomes soiled. DISCHARGE MEDICATIONS: Included on his MAY. FOLLOWUP: Follow up will be with me in 2 weeks post-discharge from rehab and Dr. Tobar per his schedule. GENEVIEVE
[2017-10-21] MEDS: Insulin Regular 300 UNITS/3 ML VIAL SC PRN ×2 (08:52→11:32)
[2017-10-21] MEDS: Acetaminophen 650 MG/20.3 ML UDCUP PO PRN (08:52)
[2017-10-21] MEDS: Insulin Glargine 15 UNITS in Pre-Filled Syringe 1 EACH SC SCH (08:52)
[2017-10-21] MEDS: Gabapentin 300 MG CAP PO SCH (08:54)
[2017-10-21] MEDS: Furosemide 40 MG TAB PO SCH ×2 (08:54→14:11)
[2017-10-21] MEDS: Famotidine 20 MG TAB PO SCH (08:54)
[2017-10-21] MEDS: Aspirin 325 mg Enteric Coated Tablet PO SCH (08:54)
[2017-10-21 16:14] VITALS: BP 110/64; TEMP 97.6
== END 2017-10-21 17:06 | DRG 919 ==
LOC: CCU 15:20 → 2NO 10-14 15:53
PROVIDERS: ADMIT Thoracic Surgery (Cardiothoracic Vascular Surgery); ATTEND Thoracic Surgery (Cardiothoracic Vascular Surgery)
PROC: 0W9B30Z Drainage of Left Pleural Cavity with Drainage Device, Percutaneous Approach (ICD-10-PCS; principal; 2017-10-12)
DX: T81.82XA Emphysema (subcutaneous) resulting from a procedure, initial encounter (principal); N17.0 Acute kidney failure with tubular necrosis; G93.40 Encephalopathy, unspecified; I63.40 Cerebral infarction due to embolism of unspecified cerebral artery; J90 Pleural effusion, not elsewhere classified; I25.10 Atherosclerotic heart disease of native coronary artery without angina pectoris; Z95.1 Presence of aortocoronary bypass graft; T81.31XA Disruption of external operation (surgical) wound, not elsewhere classified, initial encounter; I11.0 Hypertensive heart disease with heart failure; I50.9 Heart failure, unspecified; E11.9 Type 2 diabetes mellitus without complications; E66.9 Obesity, unspecified; Z68.35 Body mass index [BMI] 35.0-35.9, adult; E03.9 Hypothyroidism, unspecified; E78.5 Hyperlipidemia, unspecified
CPT/HCPCS: 36415; 36416; 71045; 76770; 80048; 81001; 82570; 82805; 83735; 84100; 84300; 84443; 85025; 87070; 87086; 87205; 93306; 93798; 94640; 94660; G8978-GP-CL; G8979-GP-CJ; G8996-GN-CN; G8997-GN-CL; J0131; J0692; J1650; J1815; J2001; J2020; J2270; J2405; J2920; J3475; J7050; J7506; J7620; J7626; P9045; P9047; S0028

== ENCOUNTER 2017-11-10 15:07 | Outpatient (CLI) | payer BC ==
--- NOTE | 2017-11-10 15:42 | RAD ---
TWO VIEW CHEST: 11/10/17 HISTORY: Pleural effusion. Followup chest tube removal. COMPARISON: Comparison made to films of 10/19/17 and 10/17/17. Linear stranding of the left mid lung is again seen probably representing some residual atelectasis o r stranding. Evidence of small left effusion obscures the CP angle. The lungs are otherwise clear and well aerated. Lung base appears better aerated today than on the 10/19/17 exam. Heart is upper normal size with postop sternotomy changes. IMPRESSION: Continued linear markings in the left mid and lower lung probably representing chronic stranding or a telectasis. Improvement in the chest when compared to prior studies. POS: [facility]
== END 2017-11-10 15:08 | disposition home or self-care (01) ==
LOC: RAD 15:07
PROVIDERS: ATTEND Thoracic Surgery (Cardiothoracic Vascular Surgery)
DX: J90 Pleural effusion, not elsewhere classified (principal)
CPT/HCPCS: 71046

== ENCOUNTER 2017-12-21 08:59 | Outpatient (CLI) | payer BC ==
--- NOTE | 2017-12-21 11:25 | RAD ---
CHEST PA AND LATERAL TWO VIEWS: History: 63-year-old male with history of chest wall and sternal pain. Comparison: 11-10-17 FINDINGS: Postop sternotomy. Minimal pleural thickening on the left with some obliquely oriented linear and par enchymal changes in the left midlung zone, evidence for some linear scarring, stable from prior study . No pneumothorax, pleural effusion, or other acute process. IMPRESSION: Postop sternotomy. Pleural and parenchymal stable opacity changes in the left chest. No new process. POS: [facility]
--- NOTE | 2017-12-21 11:27 | RAD ---
STERNUM TWO VIEWS: History: 62-year-old male with history of chest wall and sternal pain. FINDINGS: Postop sternotomy changes are noted. No evidence for over acute fracture or dislocation. Stable pleur al and parenchymal opacity changes in the left chest. IMPRESSION: Postop sternotomy. No acute fracture or dislocation. If patient has persistent or worsening sternal or anterior chest wall pain which does not resolve, a follow up chest CT scan with attenuation to this region might give additional information. Findings were discussed with Dr. Calvin at 9:45 a.m. Code CR POS: [facility]
== END 2017-12-21 09:00 | disposition home or self-care (01) ==
LOC: BICRAD 08:59
PROVIDERS: ATTEND Family Medicine
DX: R07.89 Other chest pain (principal); Z98.890 Other specified postprocedural states
CPT/HCPCS: 71046; 71120

== ENCOUNTER 2018-03-23 11:52 | Outpatient (CLI) | payer BC ==
--- NOTE | 2018-03-23 14:08 | RAD ---
TWO VIEW CHEST: Indication: Dehiscense of sternotomy. Comparison: 12-21-17 FINDINGS: Sternotomy wires are noted. There is mild cardiomegaly. Vascular and interstitial prominence is again noted. Stranding in the left lung is again seen, possibly representing atelectasis or chronic change . No significant effusion. IMPRESSION: Mild cardiomegaly with mild vascular congestion. Linear stranding and/or atelectasis in the left lung appears stable from prior study. POS: [facility]
--- NOTE | 2018-03-23 14:10 | RAD ---
STERNUM TWO VIEWS: History: Post op sternotomy. Question of dehiscense of sternum. FINDINGS: On the lateral view there is irregularity along the anterior cortex of the midsternum. Sternotomy wir es are noted. Posterior cortex is smooth and contiguous. IMPRESSION: Mild discontinuity of the anterior cortex of the sternum. The posterior cortex is smooth and contiguo us. POS: [facility]
== END 2018-03-23 11:53 | disposition home or self-care (01) ==
LOC: BICRAD 11:52
PROVIDERS: ATTEND Family Medicine
DX: T81.32XS Disruption of internal operation (surgical) wound, not elsewhere classified, sequela (principal); I51.7 Cardiomegaly; R09.89 Other specified symptoms and signs involving the circulatory and respiratory systems; Z95.1 Presence of aortocoronary bypass graft
CPT/HCPCS: 36415; 71046; 71120; 80053; 83036

== ENCOUNTER 2018-12-12 09:34 | Outpatient (CLI) | payer BC ==
--- NOTE | 2018-12-12 11:55 | RAD ---
CHEST 2 VIEWS: Date: 12/12/18 HISTORY: Dyspnea. COMPARISON: Radiograph dated 08/11/18. FINDINGS: Scar throughout the lingula and left lower lobe. There is blunting of the left lateral costophrenic s ulcus, likely chronic scar. No confluent air space consolidation, pneumothorax, or effusion. Heart size mildly enlarged. Multiple midline sternotomy wires. No acute osseous abnormality. Spherical 3 mm radiopacity projects over the left shoulder. IMPRESSION: Chronic findings. No acute intrathoracic abnormality. POS: C
== END 2018-12-12 09:35 | disposition home or self-care (01) ==
LOC: RAD 09:34
PROVIDERS: ATTEND Internal Medicine Critical Care Medicine
DX: R06.00 Dyspnea, unspecified (principal)
CPT/HCPCS: 71046

== ENCOUNTER 2018-12-13 08:53 | Outpatient (CLI) | payer BC | END 2018-12-13 08:54 | disposition home or self-care (01) | LOC: CP 08:53 | PROVIDERS: ATTEND Internal Medicine Critical Care Medicine | DX: J44.9 Chronic obstructive pulmonary disease, unspecified (principal) | CPT/HCPCS: 94060; 94727; 94729 ==

== ENCOUNTER 2023-02-17 08:14 | Outpatient (CLI) | payer OTHER ==
[2023-02-17] MEDS ORDERED: Magnevist 469MG/ML 20 ML VIAL ONE (10:19)
== END 2023-02-17 08:15 | disposition home or self-care (01) ==
LOC: MRI 08:14
PROVIDERS: ATTEND Internal Medicine Cardiovascular Disease
DX: G45.9 Transient cerebral ischemic attack, unspecified (principal); I67.89 Other cerebrovascular disease
CPT/HCPCS: 70553; A9579

== ENCOUNTER 2024-03-31 14:04 | Emergency (ER) | payer OTHER ==
[2024-03-31 15:14] LABS: #Basophils 0.06 10x3/uL (0.0-0.2); %Basophils 0.7 % (0.0-1.0); %Eosinophils 0.9 % (0.0-10.0); %Lymphocytes 26.2 % (21.0-51.0); %Monocytes 6.8 % (0.0-10.0); %Neutrophils 64.9 % (42.0-75.0); Hemoglobin 14.9 g/dL (14.0-18.0); Mean Corpuscular HGB CONC 34.7 g/dL (32.0-36.0); Mean Corpuscular Hemoglobin 30.5 pg (27.0-31.0); Mean Corpuscular Volume 88.1 fL (78.0-98.0); Mean Platelet Volume 10.6 fL (7.4-10.4); Platelet Count 252 10x3/uL (130-400); RBC Distribution Width 12.7 % (11.5-14.5); Red Blood Cell (RBC) Count 4.88 mill/uL (4.70-6.10)
[2024-03-31 15:25] LABS: ALT (SGPT) 21 U/L (8-55); AST (SGOT) 24 U/L (5-34); Albumin 4.3 g/dL (3.4-4.8); Alkaline Phosphatase 88 U/L (40-110); Anion Gap 13 mmol/L (10-20); BUN (Urea Nitrogen) 14 mg/dL (8.4-25.7); Bilirubin, Total 0.7 mg/dL (0.2-1.2); Calc. Creatinine Clearance 0 mL/min (70-130); Calcium 8.9 mg/dL (7.8-10.44); Carbon Dioxide 24 mmol/L (23-31); Chloride 107 mmol/L (98-107); Estimated GFR 96; Glucose 214 mg/dL (80-115); Potassium 4.9 mmol/L (3.5-5.1); Protein, Total 7.3 g/dL (5.8-8.1); Sodium 139 mmol/L (136-145)
[2024-03-31 15:29] LABS: Troponin I Less than 0.010 ng/mL (< 0.028)
[2024-03-31] MEDS ORDERED: Meclizine HCl 25 MG TAB ONE (15:49)
== END 2024-03-31 15:56 | disposition home or self-care (01) ==
LOC: ERS 14:04
DX: R42 Dizziness and giddiness (principal); I25.10 Atherosclerotic heart disease of native coronary artery without angina pectoris; I10 Essential (primary) hypertension
CPT/HCPCS: 70450; 80053; 83880; 84484; 85025; 93005